=== PATIENT | female | born 1980 | race Caucasian/White ===

== ENCOUNTER 2022-01-09 01:31 | Day surgery (SDC) | payer OTHER, SELFPAY ==
[2021-12-27 16:25] VITALS: BMI 21.8
--- NOTE | 2021-12-27 16:45 | PC.NURSE ---
Report to the Outpatient Waiting Room, entrance under the green pavilion located off [facility], at time 1100 on date 01/09/22. OR Time: 1300. Time changes happen often and if your time is changed the preop area will call you the afternoon before. - You and your visitor will be asked to self-screen and do not enter if you have any COVID symptoms. - Only one visitor and NO children visitors are allowed at this time. - The patient visitor is requested to leave or wait in car when not with patient due to restrictions. - A mask is required within the hospital. Patients may have clear liquids (water, carbonated beverages, clear teas, apple juice) until 3 hours prior to surgery with a maximum of 20 ounces 1000. - No food from midnight until time of surgery - Infants may have breast milk until 4 hours before surgery, infant formula 6 hours prior to surgery. - Children will be allowed to drink immediately following surgery. If applicable, please bring a bottle or sippy cup to assist with drinking. Juice, water, soda, and popsicles are readily available. For infants on formula, please bring formula the day of surgery. Pacifiers are allowed. Take the following medications with a SIP of water the morning of surgery: FACING SLITTER thyroid, flonase, zyrtec (PM before surgery) Medications to discontinue per physician N/A Date to take last dose N/A Please no make-up, nail greek, hairspray, perfume, deodorant, or body powder the day of surgery. No jewelry (including any body piercings) or valuables the day of surgery, leave them at home. Please take a shower or bath the night before, or the morning of, surgery with an antibacterial soap. Wear comfortable, loose fitting clothing. Children are encouraged to wear pajamas. - Jewelry must be removed prior to entering the operating room. Rings and piercings that are not removed may be cut off. - The hospital will not accept responsibility for valuables. - Please leave all valuables, including medications, at home the day of surgery. If you are going home after surgery, a licensed laundry route driver must drive you home. - NO public transportation without another adult. - We recommend that an adult stay with you for 24 hours following discharge. - We also recommend that you do not drive, make important decision, drink alcoholic beverages, or take any drugs that were not prescribed by your health care provider for at least 24 hours after your discharge time. For Pediatric surgeries, we recommend two adults accompany the child home (only one inside the building at this time). Follow any additional instructions given to you from your surgeon. If you or anyone in your household have experienced Covid symptoms in the past week, please notify your surgeon or the nurse liaison at the phone number below for possible testing. Telephone instructions given to Danni Canchola and asked if any additional questions and then verbalized understanding. Patient advised to call surgeon office or pre surgery nurse liaison [phone] if any additional questions.
[2022-01-09] VITALS (7 sets, daily range): BP systolic 110–126; BP diastolic 65–90; PULSE 76–99; RESP 10–18; TEMP 36.4–36.7; O2SAT 99–100
[2022-01-09] MEDS: LACTATED RINGERS 1,000 ML 30 ML IV CONT ×2 (11:30→15:10)
--- NOTE | 2022-01-09 12:34 | WPDANESEPPF ---
Anes - Initial Pre Proc Eval Procedure: Operation Date: 01/09/22 13:00 Proposed Procedures p Bilateral Breast Implant Exchange with Capsulectomy - Eugene Amaro MD Date/Time: 01/09/22 12:34 Surgeon: Eugene Amaro MD Pre Op Diagnosis: Lt Breast Implant Rupture Patient Data Age: 41 Gender: F Height: 1.68 m Weight: 60.7 kg Last Vital Signs Temp 98.1 F 01/09/22 11:06 Pulse 76 01/09/22 11:06 Resp 18 01/09/22 11:06 BP 122/90 01/09/22 11:06 Pulse Ox 100 01/09/22 11:06 O2 Del Method Room Air 01/09/22 11:06 Allergies Allergy/AdvReac Type Severity Reaction Status Date / Time No Known Allergies Allergy Verified 01/09/22 11:42 Home Medications Medication Instructions Recorded Confirmed Type cetirizine 10 mg tablet (Zyrtec) 10 mg PO HS 02/22/20 01/09/22 History fluticasone propionate 50 2 spray intranasal DAILY 02/22/20 01/09/22 History mcg/actuation nasal spray,suspension (Flonase Allergy Relief) thyroid (pork) 30 mg tablet ([facility] 30 mg PO DAILY 12/27/21 01/09/22 History Thyroid) Patient hx anesthesia problems: none Family hx anesthesia problems: none Results Review: All pre-operative results and documents have been reviewed as part of the pre-operative evaluation. [facility] Surgical History Surgical History History of appendectomy History of Family History Family History Father Family history of diabetes mellitus in first degree relative Social History Social History Years smoked: 10 Smoking status: Light tobacco smoker Tobacco type: cigarettes Smoking end date: 01/23/11 Alcohol intake: current Drinks per week: 5 Substance use: never Living arrangements: with family Spiritual care concerns: No Anes - Eval Final PreProcedure Day of Procedure 01/09/22 12:34 Patient weight: normal Heart: regular rate and rhythm Lungs: clear to auscultation Airway: Mallampati scale class II Neurological: alert and oriented Last oral intake: >/= 8 hours ASA classification: II Emergent: no Anesthetic plan: proceed Anesthesia type and monitoring: general LMA and standard monitoring Results Review: All pre-operative results and documents have been reviewed as part of the pre-operative evaluation. Informed Consent: The patient's anesthetic plan and its attendant risks and benefits were discussed with the patient/family/POA. Questions were solicited and answers provided to the satisfaction of the patient/family/POA.
--- NOTE | 2022-01-09 12:54 | WPDHPUPDATE1 ---
History and Physical Update Update Date/Time: 01/09/22 12:54 History and Physical has been reviewed, including an updated exam of the patient. There are NO changes in the patient's condition. Risks, benefits, and alternatives have been discussed and questions answered. Patient agrees to proceed with procedure. Will precede with bilateral implant exchange (including partial capsulectomy)
--- NOTE | 2022-01-09 12:56 | W.PM.PROC2 ---
Procedure Note - Detailed Date of Procedure 01/09/22 Pre-op Diagnosis Lt Breast Implant Rupture Post-op Diagnosis Same Procedure Performed Bilateral implant exchange Surgeon Eugene Amaro MD Findings Ruptured left breast implant. Bilateral partial capsulectomy No worrisome features noted. Bilateral saline implants 68-390 filled to 420 Right REF 68-390 SN [id number] Left REF 68-390 SN [id number] Description of Procedure \Preoperatively the risks, benefits, alternatives were discussed in extensive detail. I want her to be very realistic about the risks involved as well as expectations. Made sure answered all of her questions to her satisfaction. She understands pathology will be an additional expense to what she is already paid. Consent was obtained. Patient was taken to the operating room placed supine on the operating room table. Anesthesia provided by anesthesiology and prepped and draped in standard sterile fashion. Surgical time-out was taken. 1% lidocaine and 0.25% Marcaine with epinephrine was used to provide a field block. Fifteen blade used to excise the previous IMF scar. Dissection was continued down to the capsule was identified removed majority of this capsule. This was sent to pathology. I copiously irrigated with 3 L of saline solution on TUR tubing. Verified strict hemostasis. I then irrigated with Betadine solution. On the back table prepared the implant. Removed all air. This was introduced into the pocket and filled with a fill kit to the volume was as above. She was closed using 2-0 Vicryl followed by 3-0 Monocryl in a running subcuticular 4-0 Monocryl. Final closure was tissue glue. Dressings and a surgical bra were placed. Patient was awoken taken to the PACU without difficulty. All instrument and sponge counts were correct at the end of the case. Estimated Blood Loss 20 Drains No Packing No Pathology Yes (bilateral breast capsules) Complications No immediate complications Condition Stable Disposition PACU
[2022-01-09] MEDS: ceFAZolin 2 GM/D5W 50 ML 2 GM/50 ML BAG IVPB (13:07)
[2022-01-09] MEDS: TRANEXAMIC ACID 1,000 MG/10 ML AMPUL 1000 MG IV PUSH (13:23)
[2022-01-09] MEDS: NACL 0.9% IRRIG POUR BOTTLE 900 ML, GENTAMICIN SULFATE INJ 160 MG, ceFAZolin 2 GM, POVI... IRRIGATION (13:40)
[2022-01-09] MEDS: BUPIVACAINE/EPINEPHRINE 0.25% 50 ML VIAL INFILTRATE (13:43)
[2022-01-09] MEDS: LIDOCAINE HCL 1% PF INJ 5 ML VIAL 30 ML INFILTRATE (13:45)
[2022-01-09] MEDS: fentaNYL CITRATE INJ (*CRX) 100 MCG/2 ML VIAL 25 MCG IV PUSH ×2 (14:55→15:00)
[2022-01-09] MEDS: ONDANSETRON INJ 4 MG/2 ML VIAL IV PUSH (15:04)
--- NOTE | 2022-01-09 15:08 | SUR.PHASEI ---
1502: Simple mask removed.
[2022-01-09] MEDS: oxyCODONE HCL (*CRX) 5 MG TAB IR PO (15:41)
== END 2022-01-09 16:15 | disposition home or self-care (01) ==
PROVIDERS: Visit Provider Surgery Plastic and Reconstructive Surgery
PROC: (CPT 19342; principal; 2022-01-09 13:00)
DX: T85.41XA Breakdown (mechanical) of breast prosthesis and implant, initial encounter (principal); Y83.8 Other surgical procedures as the cause of abnormal reaction of the patient, or of later complication, without mention of misadventure at the time of the procedure; F17.210 Nicotine dependence, cigarettes, uncomplicated
CPT/HCPCS: 19371; 19325; 88304; A9270; J0690; J1100; J1580; J2250; J2405; J2704; J3010; J7030; J7120